=== PATIENT | female | born 1985 | race Caucasian/White ===

== ENCOUNTER 2022-07-10 12:26 | Emergency (ER) | payer OTHER | END 2022-07-10 13:49 | disposition home or self-care (01) | LOC: JP.ED 12:26 | DX: S61.211A Laceration without foreign body of left index finger without damage to nail, initial encounter (principal); Z88.0 Allergy status to penicillin; W26.0XXA Contact with knife, initial encounter | CPT/HCPCS: 12001; 99282 ==